=== PATIENT | male | born 1960 | race Caucasian/White ===

== ENCOUNTER 2017-08-31 09:02 | Outpatient (CLI) | payer OTHER ==
--- NOTE | 2017-08-31 09:49 | XRAY Report ---
Procedure Date: 08/31/2017 Accession Number: [id number] / [id number] Procedure: XR - Chest 2 View X-Ray CPT Code: 71651 FULL RESULT: EXAM: Chest 2 View X-Ray DATE: 08/31/2017 9:37 AM CLINICAL HISTORY: PERSISTENT WHEEZING/UNSPECIFIED ASTHMA COMPARISON: None. TECHNIQUE: 2 views. FINDINGS: Lungs/Pleura: No focal opacities evident. No pneumothorax or pleural effusion. Normal volumes. Mediastinum: Heart and mediastinal contours are unremarkable. Other: None. IMPRESSION: Normal 2-view chest radiography. [facility]
[2017-08-31] MEDS ORDERED: ALBUTEROL NEB 2.5 MG/3 ML INH ONE (11:00)
== END 2017-08-31 09:03 | disposition home or self-care (01) ==
LOC: DI 09:02
PROVIDERS: ATTEND Internal Medicine
DX: R06.2 Wheezing (principal)
CPT/HCPCS: 71046

== ENCOUNTER 2017-08-31 13:30 | Outpatient (CLI) | payer OTHER ==
[2017-08-31] MEDS ORDERED: ALBUTEROL NEB 2.5 MG/3 ML INH PRN (17:00)
== END 2017-08-31 23:59 | disposition home or self-care (01) ==
LOC: RT 13:30
PROVIDERS: ATTEND Internal Medicine
DX: J45.909 Unspecified asthma, uncomplicated (principal)
CPT/HCPCS: 94060; 94664

== ENCOUNTER 2019-07-16 10:34 | Outpatient (CLI) | payer OTHER ==
--- NOTE | 2019-07-16 12:23 | CT Report ---
Reason: CHRONIC SINUSITIS Procedure Date: 07/16/2019 Accession Number: [id number] / [id number] Procedure: CT - Sinuses CPT Code: Final Report FULL RESULT: EXAM: CT SINUS EXAM DATE: 07/16/2019 10:45 AM. HISTORY: 58-year-old man with chronic sinusitis. COMPARISONS: None. TECHNIQUE: Routine multi-axial CT imaging performed through the sinuses. Iodinated IV contrast: None. Reconstructions: Multiplanar reformats. In accordance with CT protocol optimization, one or more of the following dose reduction techniques were utilized for this exam: automated exposure control, adjustment of mA and/or KV based on patient size, or use of iterative reconstructive technique. FINDINGS: RIGHT Frontal: Clear. Ethmoid: Clear. Maxillary: Clear. Sphenoid: Clear. Drainage Pathways: The frontal recess, ostiomeatal complex and sphenoethmoidal recess are patent and normal. LEFT Frontal: Clear. Sinuses relatively hypoplastic. Ethmoid: Clear. Maxillary: Clear. Sphenoid: Clear. Drainage Pathways: The frontal recess, ostiomeatal complex and sphenoethmoidal recess are patent and normal. Nasal Cavity: Normal. No mass or significant anatomic abnormality evident. The septum is deviated to the left. Osseous Structures: Unremarkable. No fracture or hyperostosis. Orbits: Unremarkable. Other: None. IMPRESSION: 1. Normal sinus CT. No evidence of sinusitis. RAD[facility]
== END 2019-07-16 10:35 | disposition home or self-care (01) ==
LOC: DI 10:34
PROVIDERS: ATTEND Internal Medicine
DX: J32.9 Chronic sinusitis, unspecified (principal)
CPT/HCPCS: 70486

== ENCOUNTER 2019-12-16 14:53 | Emergency (ER) | payer OTHER ==
[2019-12-16 15:18] LABS: BILIRUBIN,URINE NEGATIVE (NEGATIVE); GLUCOSE, URINE (UA) NEGATIVE (NEGATIVE); KETONES,URINE (UA) NEGATIVE (NEGATIVE); LEUKOCYTE ESTERASE, URINE NEGATIVE (NEGATIVE); NITRITE,URINE NEGATIVE (NEGATIVE); OCCULT BLOOD,URINE TRACE-INTA (NEGATIVE); PH,URINE 7.5 PH (5.0-7.5); PROTEIN,URINE NEGATIVE (NEGATIVE); UROBILINOGEN,URINE 0.2 (NORMAL) E.U./dL (NORMAL)
[2019-12-16 15:20] LABS: CLARITY,URINE CLEAR (CLEAR)
[2019-12-16 15:21] LABS: BASOPHILS # (AUTO) 0.1 10^3/uL (0.0-0.1); BASOPHILS % (AUTO) 0.6 %; EOSINOPHILS % (AUTO) 0.3 %; LYMPHOCYTES # (AUTO) 1.2 10^3/uL (1.5-3.5); LYMPHOCYTES % (AUTO) 10.1 %; MEAN CORPUSCULAR HEMOGLOBIN 30.8 pg (27.0-31.0); MEAN CORPUSCULAR HGB CONC 33.4 g/dL (32.0-36.0); MEAN CORPUSCULAR VOLUME 92.1 fL (80.0-94.0); MONOCYTES # (AUTO) 1.1 10^3/uL (0.0-1.0); MONOCYTES % (AUTO) 9.5 %; NEUTROPHILS # (AUTO) 9.2 10^3/uL (1.5-6.6); NEUTROPHILS % (AUTO) 79.1 %; PLT - PLATELET COUNT 226 10^3/uL (130-450); RED CELL DISTRIBUTION WIDTH 11.9 % (12.0-15.0); WHITE BLOOD COUNT 11.6 x10^3/uL (4.8-10.8)
[2019-12-16 15:33] LABS: ALBUMIN 4.5 g/dL (3.2-5.5); ALBUMIN/GLOBULIN RATIO 1.3 (1.0-2.2); BILIRUBIN,TOTAL 1.1 mg/dL (0.2-1.0); CALCIUM 9.8 mg/dL (8.5-10.3); CREATININE 0.9 mg/dL (0.6-1.2)
[2019-12-16] MEDS ORDERED: IOVERSOL 320 100 ML VIAL IVP ONE ×2 (17:09→17:42)
--- NOTE | 2019-12-16 17:44 | CT Report ---
PROCEDURE: Abdomen/Pelvis W INDICATIONS: low abd pain CONTRAST: IV CONTRAST: Optiray 320 ml: 100 PO CONTRAST: *NO PO CONTRAST TECHNIQUE: After the administration of IV contrast, 5 mm thick sections acquired from the diaphragms to the symp hysis. 5 mm thick coronal and sagittal reformats were acquired. For radiation dose reduction, the f ollowing was used: automated exposure control, adjustment of mA and/or kV according to patient size. COMPARISON: None. FINDINGS: Image quality: Excellent. ABDOMEN: Lung bases: Lung bases are clear. Heart size is normal. Solid organs: Liver and spleen are normal in size and enhancement. Mild hepatic steatosis. Gallblad quin is unremarkable Biliary system is non dilated. Pancreas enhances normally. No adrenal nodules. Kidneys demonstrate normal size and enhancement, without hydronephrosis. Peritoneum and bowel: Bowel loops are nonobstructed. There is thickening and inflammatory change wit hin the sigmoid colon. Areas of scattered diverticula are present. No perforation. No abscess, free f luid or free air. Appendix is normal. Nodes and vessels: No retroperitoneal or mesenteric adenopathy by size criteria. Aorta and inferior vena cava are normal in size. Miscellaneous: No ventral hernias. PELVIS: Genitourinary: Bladder wall thickness is normal. Miscellaneous: No inguinal hernias or adenopathy. Bones: No suspicious bony lesions. No vertebral body compression fractures. IMPRESSION: 1. Sigmoid colonic thickening with diverticula most consistent with colitis secondary to diverticulit is. No free fluid, abscess or free air. Reviewed by: Josephine Espinal MD on 12/16/2019 5:43 PM PDT Approved by: Josephine Espinal MD on 12/16/2019 5:43 PM PDT Station ID: [id number]
[2019-12-16] MEDS ORDERED: levoFLOXacin 250 MG TABLET PO STA (18:22)
[2019-12-16] MEDS ORDERED: metroNIDAZOLE 250 MG TABLET PO STA (18:24)
--- NOTE | 2019-12-16 18:27 | ED Physician Documentation ---
History of Present Illness - Stated complaint Stated Complaint: ABD PX - Chief complaint Chief Complaint: Abd Pain - History obtained from History obtained from: Patient - Additonal information Additional information: Patient comes emergency department complaining of low abdominal pain that keeps coming in spasms, which have been worsening over the last several days. Patient states that he has not had any fevers or chills. He states he first started to feel a little strange about 10 days ago, but things did not get really bad until the last several days. Patient denies any diarrhea or constipation. No vomiting or diarrhea. No abdominal history that the patient knows of. He states he saw his primary care physician today, and has been scheduled for colonoscopy and a CT of the abdomen and pelvis, but states his pain got so bad today that he could not wait. Review of Systems Ten Systems: 10 systems reviewed and negative Constitutional: reports: Reviewed and negative Eyes: reports: Reviewed and negative Ears: reports: Reviewed and negative Nose: reports: Reviewed and negative Throat: reports: Reviewed and negative Cardiac: reports: Reviewed and negative Respiratory: reports: Reviewed and negative GI: reports: Abdominal Pain. denies: Nausea, Vomiting, Diarrhea : reports: Reviewed and negative Skin: reports: Reviewed and negative Musculoskeletal: reports: Reviewed and negative Neurologic: reports: Reviewed and negative Psychiatric: reports: Reviewed and negative Endocrine: reports: Reviewed and negative Immunocompromised: reports: Reviewed and negative PD PAST MEDICAL HISTORY - Past Medical History Cardiovascular: Hypertension, High cholesterol - Past Surgical History Past Surgical History: No HEENT: Tonsil/Adenoidectomy - Present Medications Home Medications: Ambulatory Orders Medication Instructions Recorded Confirmed Atorvastatin [Lipitor] 03/01/16 Hydrochlorothiazide 03/01/16 HYDROcod/ACETAM 5/325 [[place] 5/325] 1 - 2 ea PO Q6H PRN #15 tablet 12/16/19 Levofloxacin [Levaquin] 500 mg PO DAILY 14 Days #14 tablet 12/16/19 metroNIDAZOLE [Flagyl] 500 mg PO BID #28 tablet 12/16/19 - Allergies Allergies/Adverse Reactions: Allergies Allergy/AdvReac Type Severity Reaction Status Date / Time Tetanus Vaccines and Toxoid Allergy Edema Verified 12/16/19 14:57 - Social History Does the pt smoke?: No Smoking Status: Never smoker PD ED PE NORMAL - Vitals Vital signs reviewed: Yes - General General: Alert and oriented X 3, No acute distress - HEENT HEENT: Atraumatic, PERRL, EOMI, Moist mucous membranes - Neck Neck: Supple, no meningeal sign - Cardiac Cardiac: RRR, No murmur - Respiratory Respiratory: No respiratory distress, Clear bilaterally - Abdomen Abdomen: Soft, Non distended, Other (Moderate suprapubic tenderness, no rebound or guarding.) - Derm Derm: Normal color, Warm and dry, No rash - Extremities Extremities: No deformity, No edema, No calf tenderness / cord - Neuro Neuro: Alert and oriented X 3, Other (Grossly normal) - Psych Psych: Normal mood, Normal affect Results - Vitals Vitals: Vital Signs - 24 hr 12/16/19 12/16/19 12/16/19 14:57 16:10 17:39 Temperature 36.6 C 36.6 C Heart Rate 74 74 72 Respiratory 16 16 14 Rate Blood Pressure 132/80 H 132/80 H 132/77 H O2 Saturation 96 96 95 12/16/19 18:43 Temperature 37.2 C Heart Rate 81 Respiratory 18 Rate Blood Pressure 134/77 H O2 Saturation 96 Oxygen O2 Source Room air - Labs Labs: Laboratory Tests 12/16/19 12/16/19 12/16/19 15:10 15:16 15:16 WBC 11.6 H RBC 5.20 Hgb 16.0 Hct 47.9 MCV 92.1 MCH 30.8 MCHC 33.4 RDW 11.9 L Plt Count 226 MPV 10.0 Neut # (Auto) 9.2 H Lymph # (Auto) 1.2 L [place] # (Auto) 1.1 H Eos # (Auto) 0.0 Baso # (Auto) 0.1 Absolute Nucleated RBC 0.00 Nucleated RBC % 0.0 Sodium 136 Potassium 3.6 Chloride 98 L Carbon Dioxide 29 Anion Gap 9.0 BUN 10 Creatinine 0.9 Estimated GFR (MDRD) 86 L Glucose 109 H Calcium 9.8 Total Bilirubin 1.1 H AST 19 ALT 26 Alkaline Phosphatase 89 Total Protein 8.0 Albumin 4.5 Globulin 3.5 Albumin/Globulin Ratio 1.3 Lipase 31 Urine Color YELLOW Urine Clarity CLEAR Urine pH 7.5 Ur Specific [place] 1.015 Urine Protein NEGATIVE Urine Glucose (UA) NEGATIVE Urine Ketones NEGATIVE Urine Occult Blood TRACE-INTA Urine Nitrite NEGATIVE Urine Bilirubin NEGATIVE Urine Urobilinogen 0.2 (NORMAL) Ur Leukocyte Esterase NEGATIVE Ur Microscopic Review NOT INDICATED Urine Culture Comments NOT INDICATED - Rads (name of study) CT abd/pelvis Radiology: Final report received, EMP read indepedently, See rad report PD MEDICAL DECISION MAKING - ED course Complexity details: reviewed results, re-evaluated patient, considered differential, d/w patient ED course: Patient was worked up with labs, which were unremarkable, and CT of the abdomen and pelvis, which showed colitis and diverticulitis. The patient was given doses of Levaquin and Flagyl here in the emergency department. He was started on Levick some analgesia. We discussed the usual indications for return. Departure - Departure Disposition: Home, Self Care Clinical Impression: Diverticulitis of gastrointestinal tract Condition: Stable Instructions: ED Diverticulitis Prescriptions: metroNIDAZOLE [Flagyl] 500 mg PO BID #28 tablet Levofloxacin [Levaquin] 500 mg PO DAILY 14 Days #14 tablet HYDROcod/ACETAM 5/325 [[place] 5/325] 1 - 2 ea PO Q6H PRN #15 tablet PRN Reason: Pain Comments: Your labs look good. Your CT scan shows diverticulitis, an infection of small pouches along your large intestinal tract. You have been started on antibiotics for this, and should continue your antibiotics as directed at home, until completed. Please follow-up with your primary care physician if you are not feeling better after the next week. Discharge Date/Time: 12/16/19 18:53
[2019-12-16 18:44] VITALS: BP 134/77
== END 2019-12-16 18:53 | disposition home or self-care (01) ==
LOC: ED 14:53
DX: K57.32 Diverticulitis of large intestine without perforation or abscess without bleeding (principal); K52.9 Noninfective gastroenteritis and colitis, unspecified; I10 Essential (primary) hypertension
CPT/HCPCS: 36415; 74177; 80053; 81003; 83690; 85025; 99284; A9270; Q9967; 81001; 87086

== ENCOUNTER 2020-01-21 11:10 | Outpatient (CLI) | payer OTHER ==
--- NOTE | 2020-01-21 12:21 | XRAY Report ---
PROCEDURE: Knee 3 View RT INDICATIONS: R KNEE PAIN TECHNIQUE: 3 views of the right knee(s) were acquired. COMPARISON: None. FINDINGS: Bones: No fractures or dislocations, but there is a moderate degree of joint space narrowing involvi ng the lateral compartment on the frontal projection, with subchondral cyst formation present to a mi ld degree at the underlying tibial plateau. No suspicious bony lesions. Soft tissues: No joint effusion. No suspicious soft tissue calcifications. IMPRESSION: No acute trauma found. Moderate degenerative joint space osteoarthritis at the lateral c ompartment, without associated effusion or loose body seen. Reviewed by: Alec Duong MD on 01/21/2020 12:20 PM PST Approved by: Alec Duong MD on 01/21/2020 12:20 PM PST Station ID: [id number]
== END 2020-01-21 11:11 | disposition home or self-care (01) ==
LOC: DI 11:10
PROVIDERS: ATTEND Internal Medicine
DX: M17.11 Unilateral primary osteoarthritis, right knee (principal)

== ENCOUNTER 2022-07-21 10:59 | Outpatient (CLI) | payer OTHER ==
--- NOTE | 2022-07-21 13:59 | XRAY Report ---
PROCEDURE: Lumbar Spine 2 View INDICATIONS: LOW BACK PAIN TECHNIQUE: 2 views of the lumbar spine were acquired. COMPARISON: CT abdomen pelvis 12/16/2019 FINDINGS: Bones: 5 [id number] vertebrae are present. There is normal bony alignment. No vertebral body compression fractures. Mild multilevel degenerative changes with disc height loss, endplate spurring , and facet arthropathy. Soft tissues: Overlying bowel gas pattern is normal. No suspicious soft tissue calcifications. IMPRESSION: Mild degenerative changes of the lumbar spine. Reviewed by: Buddy Jimenes MD on 07/21/2022 1:57 PM PDT Approved by: Buddy Jimenes MD on 07/21/2022 1:57 PM PDT Station ID: [id number]
== END 2022-07-21 11:00 | disposition home or self-care (01) ==
LOC: DI 10:59
PROVIDERS: ATTEND Physician Assistant
DX: M47.816 Spondylosis without myelopathy or radiculopathy, lumbar region (principal)